=== PATIENT | male | born 1955 | race African-American/Black ===

== ENCOUNTER 2017-12-19 15:42 | Inpatient (IN) | payer MEDICARE, MEDICAID ==
[~2017-12-19] VITALS: Ht 172.7 cm; Wt 90.7 kg
[~2017-12-19 15:42] MED LIST: ACETAMINOPHEN120 MG PO; ASPIRIN81 MG ORAL; BENZTROPINE ME0.5 MG PO; DOCUSATE SODIU100 M2 ORAL; FERROUS SULFAT325 M2 ORAL; LIPITOR40 MG ORAL; MOM30 ML ORAL; TOPIRAMATE100 MG ORAL; TRILEPTAL300 MG/5 M PO; ZYPREXA7.5 MG ORAL
[2017-12-19 16:00] VITALS: BP 126/79
[2017-12-19] MEDS ORDERED: LORazepam Inj 2mg/ml 1ml IM ONE (16:00)
--- NOTE | 2017-12-19 16:24 | Diagnostic Imaging Report ---
Indication: Dyspnea Comparison: None A single view chest radiograph was obtained. Findings: Cardiomediastinal appearance is within normal limits for age. Pulmonary vascularity is appropriate. The diaphragmatic contour is smooth and costophrenic angles are sharp. No pleural effusions are identified. The bones are unremarkable. Impression: No acute findings
[2017-12-19 16:50] LABS: BASOPHILS % (AUTO) 0.8 % (0.0-2.0); EOSINOPHILS % (AUTO) 0.2 % (0.0-3.0); HEMATOCRIT 35.7 % (42.0-52.0); HEMOGLOBIN 12.1 G/DL (14.2-18.0); MEAN CORPUSCULAR VOLUME 98 FL (80-99); MONOCYTES % (AUTO) 8.4 % (1.0-10.0); NEUTROPHILS % (AUTO) 72.6 % (45.0-75.0); PLATELET COUNT 174 K/UL (150-450); RED BLOOD COUNT 3.65 M/UL (4.70-6.10); RED CELL DISTRIBUTION WIDTH 12.2 % (11.6-14.8); WHITE BLOOD COUNT 7.7 K/UL (4.8-10.8)
[2017-12-19 17:04] LABS: ANION GAP 12 mmol/L (5-15); BLOOD UREA NITROGEN 21 mg/dL (7-18); CALCIUM 10.3 MG/DL (8.5-10.1); CARBON DIOXIDE 21 MMOL/L (21-32); CHLORIDE 110 MMOL/L (98-107); CREATININE 1.6 MG/DL (0.55-1.30); POTASSIUM 3.7 MMOL/L (3.5-5.1); SODIUM 143 MMOL/L (136-145)
[2017-12-19 17:08] LABS: ALANINE AMINOTRANSFERASE 27 U/L (12-78); ALBUMIN/GLOBULIN RATIO 1.1 (1.0-2.7); ALKALINE PHOSPHATASE 78 U/L (46-116); ASPARTATE AMINO TRANSFERASE 25 U/L (15-37); BILIRUBIN,TOTAL 0.5 MG/DL (0.2-1.0); CREATINE KINASE 487 U/L (26-308)
[2017-12-19] MEDS ORDERED: LORazepam Inj 2mg/ml 1ml ONE (17:21)
[2017-12-19] MEDS ORDERED: LORazepam Inj 2mg/ml 1ml IV ONE (17:30)
[2017-12-19 18:13] VITALS: BP 108/74
--- NOTE | 2017-12-19 18:18 | Diagnostic Imaging Report ---
History: ALOC Exam: CT HEAD Without Contrast Technique more: CTDI is 70.38 mGy and DLP is 1397 mGy-cm. Technique more: One or more of the following dose reduction techniques were used: automated exposure control, adjustment of the mA and/or kV according to patient size, use of iterative reconstruction technique. Comparison: None available FINDINGS: No intracranial hemorrhage, mass effect or CT evidence of acute infarct Ventricles are within limits and midline Convexity and frontal volume loss, atrophy Visualized paranasal sinuses and hypoplastic mastoids appear clear. Old left medial orbital wall fracture deformity. Incidental small right frontal scalp subgaleal lipoma for example axial 14. IMPRESSION: No intracranial hemorrhage, mass effect or CT evidence of acute infarct
[2017-12-19 19:30] VITALS: BP 108/72
[2017-12-19] MEDS ORDERED: CRANBERRY405 M1 PO (19:49)
--- NOTE | 2017-12-19 20:26 | Emergency Room Report ---
History of Present Illness General Chief Complaint: Seizure Source: Medical Record, EMS Present Illness HPI Mr. Armenta is a 62-year-old male with history of schizophrenia, encephalopathy, epilepsy, hypertension, dyslipidemia, COPD, GERD, anxiety disorder, tobacco use. Presents with a catatonic state this morning. Would not respond to verbal tactile stimuli. Disheveled. Patient is normally alert nor 3. However he did not answer any questions with his staff. He did speak to EMS. However, he had repetitive speech. Allergies: Coded Allergies: CHLORPROMAZINE (Verified Allergy, Unknown, 12/19/17) DIPHENHYDRAMINE (Verified Allergy, Unknown, 12/19/17) DIVALPROEX SODIUM (Verified Allergy, Unknown, 12/19/17) HALOPERIDOL (Verified Allergy, Unknown, 12/19/17) PENICILLINS (Verified Allergy, Unknown, 12/19/17) Patient History Past Medical History: see triage record, old chart reviewed Past Surgical History: unable to obtain Social History: Reports: smoking Social History Narrative SNF Reviewed Nursing Documentation: PMH: Agreed; PSxH: Agreed Nursing Documentation-PMH Past Medical History: No History, Except For Hx COPD: Yes History Of Psychiatric Problem: Yes - Schizo, anxiety Review of Systems All Other Systems: limited Physical Exam Vital Signs Date Time Temp Pulse Resp B/P (MAP) Pulse Ox O2 Delivery O2 Flow Rate FiO2 12/19/17 15:27 97.5 112 20 125/67 97 Room Air 97.5 Sp02 EP Interpretation: reviewed, normal General Appearance: no apparent distress, alert, GCS 15, non-toxic, other - does answer questions, refused lab draw or EKG asks for water Head: normocephalic, atraumatic Eyes: bilateral eye normal inspection ENT: hearing grossly normal, normal pharynx, no angioedema, normal voice Neck: full range of motion, supple/symm/no masses Respiratory: chest non-tender, lungs clear, normal breath sounds, speaking full sentences Cardiovascular #1: regular rate, rhythm, no edema Gastrointestinal: normal bowel sounds, non tender, soft, non-distended, no guarding, no rebound Rectal: deferred Musculoskeletal: normal range of motion, non-tender Neurologic: alert, responsive, motor strength/tone normal, sensory intact, speech normal, other - oriented to name, moves all 4 extremities Psychiatric: other - flat affect Reflexes: 3+ bicep (R), 3+ bicep (L), 3+ tricep (R), 3+ tricep (L), 3+ knee (R) , 3+ knee (L) Skin: normal color, no rash, warm/dry, well hydrated Lymphatic: no adenopathy Medical Decision Making Diagnostic Impression: Primary Impression: Altered mental status ER Course Mr. Armenta presents with altered mental status. DDX: TIA/CVA, polypharmacy, acute psychosis or infection. No indication for acute neurological intervention at this time such at TPA without neuro deficit. Normal w/u with CT labs. UA pending Dr. Olmos will admit to telemetry for further care. EKG Diagnostic Results EKG Time: 16:09 Rate: tachycardiac ST Segments: no acute changes Other Impression sinus tachycardia 100 bpm left axis deviation +LBBB no ST elevation no signs of ischemia Last Vital Signs Date Time Temp Pulse Resp B/P (MAP) Pulse Ox O2 Delivery O2 Flow Rate FiO2 12/19/17 19:30 75 13 108/72 100 Room Air 12/19/17 18:13 97.5 97.5 Disposition: ADMITTED INPATIENT Condition: Stable Referrals: Micha Olmos MD (PCP) Karen Guerrero MD Dec 19, 2017 20:26
[2017-12-19 21:00] VITALS: BP 128/75
[2017-12-19] MEDS ORDERED: Acetaminophen 500mg (ES) tab ORAL PRN (23:30)
[2017-12-19] MEDS ORDERED: LORazepam 1mg tab ORAL SCH (23:30)
[2017-12-19] MEDS ORDERED: Milk of Magnesia 30ml Ud ORAL PRN (23:30)
[2017-12-20] VITALS: BP 124/85
[2017-12-20] MEDS ORDERED: LORazepam 1mg tab ORAL SCH
[2017-12-20] MEDS ORDERED: LORazepam 1mg tab ORAL PRN (03:00)
[2017-12-20] MEDS ORDERED: LORazepam Inj 2mg/ml 1ml IV PRN (03:15)
[2017-12-20 04:00] VITALS: BP 148/75
[2017-12-20 06:06] LABS: BASOPHILS % (AUTO) 0.9 % (0.0-2.0); HEMATOCRIT 39.8 % (42.0-52.0); HEMOGLOBIN 13.3 G/DL (14.2-18.0); LYMPHOCYTES % (AUTO) 21.4 % (20.0-45.0); MEAN CORPUSCULAR VOLUME 99 FL (80-99); MONOCYTES % (AUTO) 6.1 % (1.0-10.0); NEUTROPHILS % (AUTO) 70.6 % (45.0-75.0); PLATELET COUNT 144 K/UL (150-450); RED CELL DISTRIBUTION WIDTH 12.6 % (11.6-14.8); WHITE BLOOD COUNT 5.7 K/UL (4.8-10.8)
[2017-12-20 06:17] LABS: ALANINE AMINOTRANSFERASE 26 U/L (12-78); ALBUMIN 3.9 G/DL (3.4-5.0); ALBUMIN/GLOBULIN RATIO 1.1 (1.0-2.7); ALKALINE PHOSPHATASE 79 U/L (46-116); ANION GAP 8 mmol/L (5-15); ASPARTATE AMINO TRANSFERASE 32 U/L (15-37); BILIRUBIN,TOTAL 0.5 MG/DL (0.2-1.0); BLOOD UREA NITROGEN 20 mg/dL (7-18); CALCIUM 9.8 MG/DL (8.5-10.1); CARBON DIOXIDE 25 MMOL/L (21-32); CHLORIDE 111 MMOL/L (98-107); CREATININE 1.5 MG/DL (0.55-1.30); POTASSIUM 4.3 MMOL/L (3.5-5.1); SODIUM 144 MMOL/L (136-145)
[2017-12-20 08:00] VITALS: BP 136/82
[2017-12-20] MEDS: OXcarbazepine 150mg tab ORAL SCH ×2 (08:59→20:46)
[2017-12-20] MEDS: Ferrous Gluconate 324 MG TAB ORAL SCH ×2 (09:00→17:19)
[2017-12-20] MEDS: Aspirin Baby 81mg ORAL SCH (09:00)
[2017-12-20] MEDS: Topiramate 100mg tab ORAL SCH ×2 (09:00→20:46)
[2017-12-20] MEDS: Benztropine 1mg tab ORAL SCH ×2 (09:00→17:19)
[2017-12-20] MEDS: Docusate 100mg cap ORAL SCH ×2 (11:12→17:19)
[2017-12-20 11:28] LABS: FERRITIN 150 NG/ML (8-388); GAMMA GLUTAMYL TRANSPEPTIDASE 38 U/L (5-85); PHOSPHORUS 2.5 MG/DL (2.5-4.9)
[2017-12-20 11:43] LABS: % IRON SATURATION 17 % (15-50); IRON 37 ug/dL (50-175); TOTAL IRON BINDING CAPACITY 219 ug/dL (250-450)
[2017-12-20 12:00] VITALS: BP 141/85
[2017-12-20 16:00] VITALS: BP 122/72
[2017-12-20 20:00] VITALS: BP 116/84
[2017-12-20] MEDS: Atorvastatin 20mg tab ORAL SCH (20:45)
[2017-12-21 04:00] VITALS: BP 133/66
[2017-12-21 08:00] VITALS: BP 142/92
[2017-12-21 08:31] LABS: APPEARANCE,URINE CLEAR; BILIRUBIN, URINE NEGATIVE (NEGATIVE); COLOR,URINE PALE YELLOW; GLUCOSE, URINE (UA) NEGATIVE (NEGATIVE); KETONES,URINE NEGATIVE (NEGATIVE); LEUKOCYTE ESTERASE ,URINE NEGATIVE (NEGATIVE); NITRITE,URINE NEGATIVE (NEGATIVE); PH,URINE 7 (4.5-8.0); PROTEIN,URINE NEGATIVE (NEGATIVE); UROBILINOGEN,URINE NORMAL MG/DL (0.0-1.0)
[2017-12-21] MEDS: Docusate 100mg cap ORAL SCH ×3 (09:44→18:16)
[2017-12-21] MEDS: Aspirin Baby 81mg ORAL SCH (09:45)
[2017-12-21] MEDS: Topiramate 100mg tab ORAL SCH ×2 (09:45→21:14)
[2017-12-21] MEDS: OXcarbazepine 150mg tab ORAL SCH ×2 (09:45→21:15)
[2017-12-21] MEDS: Benztropine 1mg tab ORAL SCH ×2 (09:45→18:16)
[2017-12-21] MEDS: Ferrous Gluconate 324 MG TAB ORAL SCH (09:45)
[2017-12-21 12:00] VITALS: BP 138/80
--- NOTE | 2017-12-21 13:20 | Consultation ---
Consult Note Consult Note asked to eval for high Cr Mr. Armenta is a 62-year-old male with history of schizophrenia, encephalopathy, epilepsy, hypertension, dyslipidemia, COPD, GERD, anxiety disorder, tobacco use. Presents with a catatonic state this morning. Would not respond to verbal tactile stimuli. Disheveled. Patient is normally alert nor 3. However he did not answer any questions with his staff. He did speak to EMS. However, he had repetitive speech. Coded Allergies: CHLORPROMAZINE (Verified Allergy, Unknown, 12/19/17) DIPHENHYDRAMINE (Verified Allergy, Unknown, 12/19/17) DIVALPROEX SODIUM (Verified Allergy, Unknown, 12/19/17) HALOPERIDOL (Verified Allergy, Unknown, 12/19/17) PENICILLINS (Verified Allergy, Unknown, 12/19/17) Past Medical History: No History, Except For Hx COPD: Yes History Of Psychiatric Problem: Yes - Schizo, anxiety seen examined data reviewed Assessment/Plan Renal failure- Encephalopathy- h/o Psych disease B12 IM Stool softner flomax monitor renal parameters per orders Rey Cisneros MD Dec 21, 2017 13:20
[2017-12-21] MEDS ORDERED: Vitamin B12 1000mcg/ml Inj IM SCH (13:30)
--- NOTE | 2017-12-21 15:43 | General Progress Note ---
Assessment/Plan Problem List: (1) Altered mental status ICD Codes: R41.82 - Altered mental status, unspecified SNOMED: 980236002 Status: progressing Assessment/Plan afebrile ams r/p catatonia psychiatric patient vitals stble reviewed chart and labs and meds Subjective ROS Limited/Unobtainable: Yes Allergies: Coded Allergies: CHLORPROMAZINE (Verified Allergy, Unknown, 12/19/17) DIPHENHYDRAMINE (Verified Allergy, Unknown, 12/19/17) DIVALPROEX SODIUM (Verified Allergy, Unknown, 12/19/17) HALOPERIDOL (Verified Allergy, Unknown, 12/19/17) PENICILLINS (Verified Allergy, Unknown, 12/19/17) Objective Last 24 Hour Vital Signs Date Time Temp Pulse Resp B/P (MAP) Pulse Ox O2 Delivery O2 Flow Rate FiO2 12/21/17 12:00 97.7 82 18 138/80 (99) 97 97.7 82 12/21/17 08:30 Room Air 12/21/17 08:00 97.5 107 20 142/92 (109) 95 97.5 107 12/21/17 07:44 110 12/21/17 04:00 97.5 78 20 133/66 (88) 100 97.5 78 12/21/17 03:36 68 12/20/17 23:41 68 12/20/17 21:00 Room Air 12/20/17 20:03 86 12/20/17 20:00 97.2 86 18 116/84 (95) 99 97.2 86 12/20/17 16:00 89 12/20/17 16:00 97.2 79 18 122/72 (89) 98 97.2 Intake and Output 12/20/17 12/21/17 19:00 07:00 Intake Total 360 ml 240 ml Balance 360 ml 240 ml Intake Oral 360 ml 240 ml # Voids 2 1 # Bowel Movements 1 1 Laboratory Tests 12/21/17 08:00: Urine Color Pale yellow, Urine Appearance Clear, Urine pH 7, Urine Specific [place] 1.005, Urine Protein Negative, Urine Glucose (UA) Negative, Urine Ketones Negative, Urine Blood Negative, Urine Nitrite Negative, Urine Bilirubin Negative, Urine Urobilinogen Normal, Urine Leukocyte Esterase Negative, Urine RBC 0, Urine WBC 0, Urine Squamous Epithelial Cells Occasional, Urine Bacteria None Height (Feet): 5 Height (Inches): 8.00 Weight (Pounds): 200 Cardiovascular: normal rate Respiratory/Chest: lungs clear Micha Olmos MD Dec 21, 2017 15:43
[2017-12-21 16:00] VITALS: BP 130/83
[2017-12-21] MEDS ORDERED: Tamsulosin 0.4mg cap ORAL SCH (21:00)
[2017-12-21] MEDS: Atorvastatin 20mg tab ORAL SCH (21:15)
[2017-12-22 08:00] VITALS: BP 142/88
[2017-12-22] MEDS: Topiramate 100mg tab ORAL SCH ×2 (08:51→20:25)
[2017-12-22] MEDS: Docusate 100mg cap ORAL SCH ×3 (08:51→17:42)
[2017-12-22] MEDS: OXcarbazepine 150mg tab ORAL SCH ×2 (08:52→20:26)
[2017-12-22] MEDS: Aspirin Baby 81mg ORAL SCH (08:52)
[2017-12-22] MEDS: Benztropine 1mg tab ORAL SCH ×2 (08:52→17:41)
[2017-12-22 11:27] LABS: ALANINE AMINOTRANSFERASE 28 U/L (12-78); ALBUMIN 3.8 G/DL (3.4-5.0); ALKALINE PHOSPHATASE 82 U/L (46-116); ANION GAP 9 mmol/L (5-15); ASPARTATE AMINO TRANSFERASE 23 U/L (15-37); BILIRUBIN,TOTAL 0.4 MG/DL (0.2-1.0); BLOOD UREA NITROGEN 14 mg/dL (7-18); CALCIUM 10.1 MG/DL (8.5-10.1); CARBON DIOXIDE 24 MMOL/L (21-32); CHLORIDE 111 MMOL/L (98-107); CHOLESTEROL 125 MG/DL (< 200); CREATINE KINASE 266 U/L (26-308); CREATININE 1.3 MG/DL (0.55-1.30); HDL CHOLESTEROL 57 MG/DL (40-60); PHOSPHORUS 2.3 MG/DL (2.5-4.9); POTASSIUM 4.2 MMOL/L (3.5-5.1); SODIUM 143 MMOL/L (136-145); TRIGLYCERIDES 96 MG/DL (30-150)
--- NOTE | 2017-12-22 11:36 | Nephrology Progress Note ---
Assessment/Plan Problem List: (1) Altered mental status (2) Renal failure (ARF), acute on chronic (3) Psychiatric disorder Assessment Renal failure- Encephalopathy- h/o Psych disease Plan refused blood work- B12 IM Stool softner flomax monitor renal parameters per orders med surg Subjective ROS Limited/Unobtainable: No Constitutional: Reports: malaise Objective Objective Last 24 Hour Vital Signs Date Time Temp Pulse Resp B/P (MAP) Pulse Ox O2 Delivery O2 Flow Rate FiO2 12/22/17 09:00 Room Air 12/22/17 08:00 96.8 78 20 142/88 (106) 98 96.8 12/22/17 08:00 86 12/22/17 04:05 70 12/21/17 23:33 76 12/21/17 21:00 Room Air 12/21/17 19:06 79 12/21/17 16:00 97.5 88 20 130/83 (99) 99 97.5 88 12/21/17 15:30 83 12/21/17 12:00 97.7 82 18 138/80 (99) 97 97.7 82 12/21/17 11:51 68 Intake and Output 12/21/17 12/22/17 19:00 07:00 Intake Total 360 ml 240 ml Balance 360 ml 240 ml Intake Oral 360 ml 240 ml # Voids 3 1 Laboratory Tests 12/22/17 10:10: Sodium Level 143, Potassium Level 4.2, Chloride Level 111H, Carbon Dioxide Level 24, Anion Gap 9, Blood Urea Nitrogen 14, Creatinine 1.3, Estimat Glomerular Filtration Rate > 60, Glucose Level 114H, Hemoglobin A1c [Pending], Uric Acid 5.5, Calcium Level 10.1, Phosphorus Level 2.3L, Magnesium Level 2.2, Total Bilirubin 0.4, Aspartate Amino Transf (AST/SGOT) 23, Alanine Aminotransferase (ALT/SGPT) 28, Alkaline Phosphatase 82, Total Creatine Kinase 266, C-Reactive Protein, Quantitative 1.4H, Pro-B-Type Natriuretic Peptide 45, Total Protein 7.5, Albumin 3.8, Globulin 3.7, Albumin/Globulin Ratio 1.0, Triglycerides Level 96, Cholesterol Level 125, LDL Cholesterol 53, HDL Cholesterol 57, Cholesterol/HDL Ratio 2.2L, Thyroid Stimulating Hormone (TSH) 0.610 Height (Feet): 5 Height (Inches): 8.00 Weight (Pounds): 200 General Appearance: no apparent distress Cardiovascular: normal rate Respiratory/Chest: decreased breath sounds Abdomen: soft Objective no change Rey Cisneros MD Dec 22, 2017 11:36
[2017-12-22 12:00] VITALS: BP 133/90
--- NOTE | 2017-12-22 12:30 | Consultation ---
DATE OF CONSULTATION: 12/21/2017 HISTORY OF PRESENT ILLNESS: This is a 62-year-old male with a history of schizophrenia, encephalopathy, epilepsy, hypertension, COPD, and GERD, who has been admitted to the hospital for high creatinine. The patient was more confused, has waxing and waning consciousness, was alert and oriented times self, place. He was a poor historian. He did not know what medication he was taking. He is having cognitive impairment. Memory and concentration impairment. Depressed mood, anhedonia, worthlessness, and hopelessness. No suicidal or homicidal ideation. PAST PSYCHIATRIC HISTORY: History of schizophrenia. psychiatric hospitalization. MEDICATIONS: He is on Topamax and Zyprexa. PAST MEDICAL HISTORY: Significant for multiple medical problems including seizure, hypertension, and renal failure. ALLERGIES: Include Depakote, Haldol, penicillin, chlorpromazine, and diphenhydramine. SUBSTANCE ABUSE HISTORY: No known history of illicit drug use or alcohol. MENTAL STATUS EXAMINATION: The patient is alert and oriented times self and place. He has waxing and waning consciousness. Mood is dysphoric. Affect is flat. Thought process, there is a paucity of thought content. Thought content, no suicidal or homicidal ideations. Cognition is impaired. Insight and judgment non-existent. ASSESSMENT: AXIS I Encephalopathy due to general medical condition and schizophrenia. AXIS II Deferred. AXIS III As above. AXIS IV Low. AXIS V Global assessment of functioning is 25. PLAN: 1. The patient will be started on Zyprexa 5 mg at bedtime. 2. We will continue Topamax. 3. Provide the patient with supportive therapy and reality orientation. 4. We will continue follow and readjust the medications. Calderon Dupont M.D. DR: MAG JOB#: [id number] CC:
--- NOTE | 2017-12-22 13:00 | History and Physical Report ---
DATE OF ADMISSION: 12/19/2017 HISTORY OF PRESENT ILLNESS: The patient is a very poor historian. He was admitted for altered mental status at the longterm. According to the staff, the patient was catatonic, has history of psychosis, was not moving at all, also admitted for rule out EPS, and also admitted for altered mental status. The patient is a poor historian, cannot get reliable history from the patient, however, denies shortness of breath. Denies nausea, vomiting, or diarrhea. PAST MEDICAL HISTORY: Psychosis, hyperlipidemia, constipation, iron-deficiency anemia, mood disorder. PAST SURGICAL HISTORY: Denies. ALLERGIES: To chlorpromazine, Benadryl, Depakote, and Haldol. MEDICATIONS: Aspirin, Lipitor, Cogentin, Colace, ferrous sulfate, Zyprexa, . FAMILY HISTORY: Noncontributory. SOCIAL HISTORY: Unable to obtain. REVIEW OF SYSTEMS: Poor historian, unable to obtain; however, denies cough. PHYSICAL EXAMINATION: VITAL SIGNS: Temperature is 97.4, pulse 89, blood pressure 124/85. HEENT: PERRLA. NECK: Supple. No lymphadenopathy. CHEST: Clear to auscultation. GASTROINTESTINAL: Soft, nontender, and nondistended. No organomegaly EXTREMITIES: No edema. Reflexes in both sides. Not oriented. The patient is more alert than what he was yesterday. LABORATORY DATA: WBC of 7.7, hemoglobin 12.1, and platelets of 174. Sodium 143, potassium 3.7, chloride 110, BUN 29, creatinine 1.6, and glucose of 110. ASSESSMENT/PLAN: Elevated CPK, elevated creatinine, altered mental status, rule out catatonia, rule out EPS. I have asked Dr. Cisneros, Dr. Dupont to see the patient for the treatment and management of the above-mentioned diagnoses. Micha Olmos M.D. DR: Sheila JOB#: [id number] CC:
[2017-12-22] MEDS ORDERED: Acetaminophen 500mg (ES) tab ORAL PRN (15:12)
[2017-12-22] MEDS ORDERED: Milk of Magnesia 30ml Ud ORAL PRN (15:13)
[2017-12-22] MEDS ORDERED: LORazepam Inj 2mg/ml 1ml IV PRN (15:13)
[2017-12-22] MEDS ORDERED: Atorvastatin 20mg tab ORAL SCH (21:00)
[2017-12-22] MEDS ORDERED: Tamsulosin 0.4mg cap ORAL SCH (21:00)
--- NOTE | 2017-12-22 22:22 | General Progress Note ---
Assessment/Plan Problem List: (1) Altered mental status ICD Codes: R41.82 - Altered mental status, unspecified SNOMED: 236177073 Status: progressing Assessment/Plan no acute events psychatric patient ams r/o uti Subjective ROS Limited/Unobtainable: Yes Allergies: Coded Allergies: CHLORPROMAZINE (Verified Allergy, Unknown, 12/19/17) DIPHENHYDRAMINE (Verified Allergy, Unknown, 12/19/17) DIVALPROEX SODIUM (Verified Allergy, Unknown, 12/19/17) HALOPERIDOL (Verified Allergy, Unknown, 12/19/17) PENICILLINS (Verified Allergy, Unknown, 12/19/17) Objective Last 24 Hour Vital Signs Date Time Temp Pulse Resp B/P (MAP) Pulse Ox O2 Delivery O2 Flow Rate FiO2 12/22/17 12:00 97.9 82 20 133/90 (104) 98 97.9 12/22/17 12:00 82 12/22/17 09:00 Room Air 12/22/17 08:00 96.8 78 20 142/88 (106) 98 96.8 12/22/17 08:00 86 12/22/17 04:05 70 12/21/17 23:33 76 Intake and Output 12/21/17 12/22/17 19:00 07:00 Intake Total 360 ml 240 ml Balance 360 ml 240 ml Intake Oral 360 ml 240 ml # Voids 3 1 Laboratory Tests 12/22/17 10:10: Sodium Level 143, Potassium Level 4.2, Chloride Level 111H, Carbon Dioxide Level 24, Anion Gap 9, Blood Urea Nitrogen 14, Creatinine 1.3, Estimat Glomerular Filtration Rate > 60, Glucose Level 114H, Hemoglobin A1c 4.8, Uric Acid 5.5, Calcium Level 10.1, Phosphorus Level 2.3L, Magnesium Level 2.2, Total Bilirubin 0.4, Aspartate Amino Transf (AST/SGOT) 23, Alanine Aminotransferase ( ALT/SGPT) 28, Alkaline Phosphatase 82, Total Creatine Kinase 266, C-Reactive Protein, Quantitative 1.4H, Pro-B-Type Natriuretic Peptide 45, Total Protein 7.5 , Albumin 3.8, Globulin 3.7, Albumin/Globulin Ratio 1.0, Triglycerides Level 96 , Cholesterol Level 125, LDL Cholesterol 53, HDL Cholesterol 57, Cholesterol/ HDL Ratio 2.2L, Thyroid Stimulating Hormone (TSH) 0.610 Height (Feet): 5 Height (Inches): 8.00 Weight (Pounds): 200 Cardiovascular: normal rate Respiratory/Chest: lungs clear Abdomen: soft Micha Olmos MD Dec 22, 2017 22:22
[2017-12-23] MEDS ORDERED: LORazepam Inj 2mg/ml 1ml IM PRN (03:13)
[2017-12-23 08:35] LABS: EOSINOPHILS % (AUTO) 1.3 % (0.0-3.0); HEMATOCRIT 37.5 % (42.0-52.0); HEMOGLOBIN 12.1 G/DL (14.2-18.0); LYMPHOCYTES % (AUTO) 25.3 % (20.0-45.0); MEAN CORPUSCULAR VOLUME 98 FL (80-99); MONOCYTES % (AUTO) 8.4 % (1.0-10.0); PLATELET COUNT 159 K/UL (150-450); RED BLOOD COUNT 3.84 M/UL (4.70-6.10); WHITE BLOOD COUNT 4.8 K/UL (4.8-10.8)
[2017-12-23] MEDS: Benztropine 1mg tab ORAL SCH (09:00)
[2017-12-23] MEDS ORDERED: Aspirin Baby 81mg ORAL SCH (09:00)
[2017-12-23] MEDS: Topiramate 100mg tab ORAL SCH (09:01)
[2017-12-23] MEDS: Docusate 100mg cap ORAL SCH ×2 (09:01→13:05)
[2017-12-23] MEDS: OXcarbazepine 150mg tab ORAL SCH (09:01)
[2017-12-23 09:23] LABS: ALANINE AMINOTRANSFERASE 26 U/L (12-78); ALBUMIN 3.4 G/DL (3.4-5.0); ALKALINE PHOSPHATASE 74 U/L (46-116); ANION GAP 8 mmol/L (5-15); ASPARTATE AMINO TRANSFERASE 21 U/L (15-37); BILIRUBIN,TOTAL 0.4 MG/DL (0.2-1.0); BLOOD UREA NITROGEN 17 mg/dL (7-18); CARBON DIOXIDE 23 MMOL/L (21-32); CHLORIDE 114 MMOL/L (98-107); CREATININE 1.4 MG/DL (0.55-1.30); PHOSPHORUS 2.2 MG/DL (2.5-4.9); POTASSIUM 4.3 MMOL/L (3.5-5.1); SODIUM 145 MMOL/L (136-145)
--- NOTE | 2017-12-23 11:44 | Nephrology Progress Note ---
Assessment/Plan Problem List: (1) Altered mental status (2) Renal failure (ARF), acute on chronic (3) Psychiatric disorder Assessment Renal failure- Encephalopathy- h/o Psych disease Plan refuses po meds B12 IM Stool softner flomax monitor renal parameters per orders med surg ? DC Subjective ROS Limited/Unobtainable: No Objective Objective Last 24 Hour Vital Signs Date Time Temp Pulse Resp B/P (MAP) Pulse Ox O2 Delivery O2 Flow Rate FiO2 12/23/17 08:01 Room Air 12/22/17 21:00 Room Air 12/22/17 12:00 97.9 82 20 133/90 (104) 98 97.9 12/22/17 12:00 82 Intake and Output 12/22/17 12/23/17 19:00 07:00 Intake Total 440 ml 240 ml Output Total 400 ml Balance 440 ml -160 ml Intake Oral 440 ml 240 ml Output Urine Total 400 ml # Voids 1 1 Laboratory Tests 12/23/17 07:55: White Blood Count 4.8, Red Blood Count 3.84L, Hemoglobin 12.1L, Hematocrit 37.5L , Mean Corpuscular Volume 98, Mean Corpuscular Hemoglobin 31.5H, Mean Corpuscular Hemoglobin Concent 32.3, Red Cell Distribution Width 12.0, Platelet Count 159, Mean Platelet Volume 5.1L, Neutrophils (%) (Auto) 64.0, Lymphocytes ( %) (Auto) 25.3, Monocytes (%) (Auto) 8.4, Eosinophils (%) (Auto) 1.3, Basophils (%) (Auto) 1.0, Sodium Level 145, Potassium Level 4.3, Chloride Level 114H, Carbon Dioxide Level 23, Anion Gap 8, Blood Urea Nitrogen 17, Creatinine 1.4H, Estimat Glomerular Filtration Rate > 60, Glucose Level 107H, Uric Acid 5.5, Calcium Level 10.0, Phosphorus Level 2.2L, Magnesium Level 2.0, Total Bilirubin 0.4, Aspartate Amino Transf (AST/SGOT) 21, Alanine Aminotransferase (ALT/SGPT) 26, Alkaline Phosphatase 74, Pro-B-Type Natriuretic Peptide 45, Total Protein 6.7, Albumin 3.4, Globulin 3.3, Albumin/Globulin Ratio 1.0 Height (Feet): 5 Height (Inches): 8.00 Weight (Pounds): 200 General Appearance: no apparent distress Objective no change Fouladian,Rey MD Dec 23, 2017 11:44
--- NOTE | 2017-12-23 16:30 | Consultation ---
DATE OF CONSULTATION: 12/23/2017 UROLOGY CONSULTATION CONSULTING PHYSICIAN: Teofilo Blood M.D. ATTENDING/CONSULTING PHYSICIAN: Micha Olmos M.D. CHIEF COMPLAINT/HISTORY OF PRESENT ILLNESS: I was asked by Dr. Olmos to evaluate this 62-year-old, gentleman regarding history of scrotal swelling and edema. Briefly, the patient has a history of altered mental status and presented to the hospital for evaluation of the same. He has a underlying history of psychosis and other issues. He has a very poor historian. Today, at the bedside he denies any problems "urinating". He refuses to let me examine his scrotum. PAST MEDICAL HISTORY: 1. Psychosis. 2. Hyperlipidemia. 3. Constipation. 4. Anemia. 5. Mood disorder, NOS. PAST SURGICAL HISTORY: None. MEDICATIONS: Please see chart for current medications administration details. ALLERGIES: Benadryl, Depakote, Haldol and chlorpromazine. SOCIAL HISTORY: Unobtainable, as the patient cannot cooperate much with questioning. FAMILY HISTORY: Unobtainable, as the patient cannot cooperate with questioning. REVIEW OF SYSTEMS: A 14 system review of systems was attempted, but the patient is a poor historian and will not answer questions well. PHYSICAL EXAMINATION: GENERAL: The patient is an older gentleman, awake and alert, uncertain of full orientation, as the patient will not answer questions, no obvious distress. HEENT: NC/AT. NECK: Appears supple. Oropharynx is clear. The patient refuses any further exam. LABORATORY AND DIAGNOSTIC DATA: White blood cell count 4.8, hematocrit 37.5, and platelets 159. Sodium 143, potassium 4.2, chloride 111, bicarbonate 24, BUN 14, creatinine 1.3, and glucose 114. Calcium 10.1. LFTs within normal limits. Diagnostic imaging, scrotal ultrasound was ordered, but the patient refused the same. Chest x-ray from 4 days ago with no acute findings. Head CT from 4 days ago with no intracranial hemorrhage, mass effect, or evidence of infarct. ASSESSMENT AND PLAN: In summary, the patient is a 62-year-old gentleman with a reported history of scrotal swelling. The patient cannot provide any useful information and refuses for me to examine him. Furthermore, he refuses to have a scrotal ultrasound done, although it was ordered multiple times. Laboratory data appears unremarkable. I attempted multiple times and today at the bedside to allow the patient to allow me to examine him to assess what is going on with the scrotum. He steadfastly refused and did not want to see me. Given the above, I will sign off the case. Thank you for attempting to allowing me to see this gentleman. Please do not hesitate to contact me with any questions that you may further have regarding his care. Teofilo Blood M.D. DR: JIN JOB#: [id number] CC:
--- NOTE | 2017-12-23 19:44 | General Progress Note ---
Assessment/Plan Status: stable Assessment/Plan AXIS I Encephalopathy due to general medical condition and schizophrenia. AXIS II Deferred. AXIS III As above. AXIS IV Low. AXIS V Global assessment of functioning is 25. PLAN: 1. The patient will be started on Zyprexa 5 mg at bedtime. 2. We will continue Topamax. 3. Provide the patient with supportive therapy and reality orientation. 4. We will continue follow and readjust the medications. Subjective Date patient seen: Dec 23, 2017 Neurologic/Psychiatric: Reports: anxiety, depressed, emotional problems Allergies: Coded Allergies: CHLORPROMAZINE (Verified Allergy, Unknown, 12/19/17) DIPHENHYDRAMINE (Verified Allergy, Unknown, 12/19/17) DIVALPROEX SODIUM (Verified Allergy, Unknown, 12/19/17) HALOPERIDOL (Verified Allergy, Unknown, 12/19/17) PENICILLINS (Verified Allergy, Unknown, 12/19/17) Objective Last 24 Hour Vital Signs Date Time Temp Pulse Resp B/P (MAP) Pulse Ox O2 Delivery O2 Flow Rate FiO2 12/23/17 08:01 Room Air 12/22/17 21:00 Room Air Intake and Output 12/22/17 12/23/17 19:00 07:00 Intake Total 440 ml 240 ml Output Total 400 ml Balance 440 ml -160 ml Intake Oral 440 ml 240 ml Output Urine Total 400 ml # Voids 1 1 Laboratory Tests 12/23/17 07:55: White Blood Count 4.8, Red Blood Count 3.84L, Hemoglobin 12.1L, Hematocrit 37.5L , Mean Corpuscular Volume 98, Mean Corpuscular Hemoglobin 31.5H, Mean Corpuscular Hemoglobin Concent 32.3, Red Cell Distribution Width 12.0, Platelet Count 159, Mean Platelet Volume 5.1L, Neutrophils (%) (Auto) 64.0, Lymphocytes ( %) (Auto) 25.3, Monocytes (%) (Auto) 8.4, Eosinophils (%) (Auto) 1.3, Basophils (%) (Auto) 1.0, Sodium Level 145, Potassium Level 4.3, Chloride Level 114H, Carbon Dioxide Level 23, Anion Gap 8, Blood Urea Nitrogen 17, Creatinine 1.4H, Estimat Glomerular Filtration Rate > 60, Glucose Level 107H, Uric Acid 5.5, Calcium Level 10.0, Phosphorus Level 2.2L, Magnesium Level 2.0, Total Bilirubin 0.4, Aspartate Amino Transf (AST/SGOT) 21, Alanine Aminotransferase (ALT/SGPT) 26, Alkaline Phosphatase 74, Pro-B-Type Natriuretic Peptide 45, Total Protein 6.7, Albumin 3.4, Globulin 3.3, Albumin/Globulin Ratio 1.0 Height (Feet): 5 Height (Inches): 8.00 Weight (Pounds): 200 General Appearance: no apparent distress, alert Neurologic: oriented x 3, responsive, depressed affect Calderon Dupont MD Dec 23, 2017 19:44
--- NOTE | 2017-12-25 10:47 | Discharge Summary ---
Discharge Summary Discharge Summary _ DATE OF ADMISSION: 12/19/2017 DATE OF DISCHARGE: 12/23/2017 REASON FOR ADMISSION: 62 years old male with past medical history significant for schizophrenia, seizure disorder, COPD, GERD, hypertension, dyslipidemia, anxiety disorder , tobacco abuse, encephalopathy presented with altered mental status for evaluation. Vital signs reveal tachycardia of 112, otherwise stable . EKG revealed sinus tachycardia with left bundle branch block , no ST changes. Laboratory workup revealed no leukocytosis, hemoglobin 12.1 hematocrit 35.7. Troponin negative. Pro BNP 487. BUN 21, creatinine 1.6. Urinalysis negative. CK 487. Chest x-ray revealed no acute cardiopulmonary pathology. CT of the head revealed no acute intracranial pathology. Patient was admitted with diagnoses of altered mental status , renal failure, schizophrenia. CONSULTANTS: motion picture equipment machinist Dr. Cisneros psychiatrist Urologist Dr. Blood [facility] COURSE: Patient admitted. Nephrology and psychiatric consults were requested. Psychiatrist optimized psychiatric medication regimen. Per psychiatrist , patient had encephalopathy, secondary to general medical condition and schizophrenia. SNF medications were resumed. Patient status post 1 L of IV fluids. Licensed [employer] closely followed. Renal parameters and electrolytes were closely monitored. Electrolytes corrected as needed. Nephrotoxins were avoided. CK down to 266. Creatinine down to 1.4. Patient started on Flomax. Bowel regimen instituted. Pain management provided as needed. Aspirin and statin continued. Seizure precautions maintained, Topamax was continued. Blood culture were negative. Urologist attempted to see the patient due to chronic scrotal edema , however patient declined scrotal ultrasound and physical examination. Urologist signed of the case: scrotal edema chronic, no pain. Patient was stable for discharge . Mental status back to baseline prior to discharge. FINAL DIAGNOSES: Encephalopathy secondary to general medical condition and underlying schizophrenia Acute renal failure Schizophrenia Scrotal edema DISCHARGE MEDICATIONS: See Medication Reconciliation list. DISCHARGE INSTRUCTIONS: [facility]. Follow up with medical doctor at the facility. I have been assigned to dictate discharge summary for this account. I was not involved in the patient's management. Nalini Ruiz NP Dec 25, 2017 10:47
--- NOTE | 2017-12-28 16:06 | Cardiology Report ---
APPROVED REPORT EKG Measurement Heart [id number] Sinus tachycardia Left axis deviation Possible acute STelev septal MO Left ventricular hypertrophy with QRS widening Abnormal ECG
== END 2017-12-23 15:13 | DRG 71 ==
LOC: EDBD 15:42 → EMR 16:04 → 2E 19:15 → EDBEDREQ 20:11 → 3E 12-22 15:02
DX: G93.40 Encephalopathy, unspecified (principal); N17.9 Acute kidney failure, unspecified; Z88.0 Allergy status to penicillin; Z88.8 Allergy status to other drugs, medicaments and biological substances; N18.9 Chronic kidney disease, unspecified; F20.9 Schizophrenia, unspecified; E78.5 Hyperlipidemia, unspecified; G40.909 Epilepsy, unspecified, not intractable, without status epilepticus; J44.9 Chronic obstructive pulmonary disease, unspecified; I12.9 Hypertensive chronic kidney disease with stage 1 through stage 4 chronic kidney disease, or unspecified chronic kidney disease; K21.9 Gastro-esophageal reflux disease without esophagitis; N50.89 Other specified disorders of the male genital organs
CPT/HCPCS: 36415; 70450; 71045; 80053; 80061; 81001; 82550; 82607; 82728; 82746; 82977; 83036; 83540; 83550; 83605; 83735; 83880; 84100; 84443; 84484; 84550; 85025; 86140; 87040; 87081; 93005; 96372; 96374; 99285